=== PATIENT | male | born 1965 | race Caucasian/White ===

== ENCOUNTER 2023-09-14 21:25 | Emergency (ER) | payer BC ==
[2023-09-14] MEDS ORDERED: KETOROLAC 30 MG/ML INJ ONE (21:47)
[2023-09-14] MEDS ORDERED: HYDROCODONE/APAP 5/325 MG TAB ONE (21:47)
[2023-09-14] MEDS ORDERED: LIDOCAINE 4% PATCH ONE (21:48)
--- NOTE | 2023-09-14 22:39 | RAD REPORT ---
EXAM DESCRIPTION: RAD - Ribs Left - 09/14/2023 10:29 pm CLINICAL HISTORY: fall COMPARISON: Chest Single View dated 09/14/2023 FINDINGS/IMPRESSION: No displaced left-sided rib fractures identified. No pneumothorax. Nondisplaced rib fractures may not be apparent radiographically until healing begins.
--- NOTE | 2023-09-14 22:39 | RAD REPORT ---
EXAM DESCRIPTION: RAD - Chest Single View - 09/14/2023 10:29 pm CLINICAL HISTORY: L rib injury COMPARISON: No comparisons FINDINGS: Lines: None. Lungs: No evidence of edema or pneumonia. Pleural: No significant pleural effusions or pneumothorax. Cardiac: The heart size is within normal limits. Mediastinum: Within normal limits. Bones: No acute fractures. Other: None IMPRESSION: No acute cardiopulmonary disease.
--- NOTE | 2023-09-14 22:57 | EDPHYS ---
Physician Documentation [facility] Name: Thony Mir Age: 58 yrs Sex: Male : 1965 Arrival Date: 09/14/2023 Time: 21:25 Bed DX3 Private MD: ED Physician iWlliam Cat HPI: 09/13 21:43 This 58 yrs old Male presents to ER via Ambulatory with complaints of Fall ec2 Injury. 21:43 Patient arrives today for evaluation after falling. Patient reportedly was walking on a ec2 wet surface and subsequently fell and injured his left ribs. Patient reports injury happened approximately 4 hours ago. No LOC, no head strike, no head or neck pain. Patient is on blood thinners. Patient complaining of pain with movement and deep inspiration.. Historical: - Allergies: 21:41 No Known Allergies; as6 - PMHx: 21:41 Hypercholesterolemia; as6 - PSHx: 21:41 None; as6 - Immunization history:: Adult Immunizations up to date. - Infectious Disease History:: Denies. - Social history:: Smoking status: Patient reports the use of cigarette tobacco products, smokes one-half pack cigarettes per day. ROS: 21:43 Constitutional: as per hpi ec2 Exam: 21:43 Constitutional: GEN: NAD Head: atraumatic Eyes: EOMI Ears: External ears are ec2 normal. CV: regular rate LUNGS: no respiratory distress ABD: non-distended SKIN: no evidence of rashes MSK: no evidence of trauma, left lateral rib TTP, no deformities or crepitus, no significant ecchymosis appreciated. NEURO: moves all extremities equally Vital Signs: 21:39 BP 127 / 77; Pulse 87; Resp 18; Temp 98.4; Pulse Ox 100% ; Weight 92.99 kg; Height 5 as6 ft. 10 in. ; Pain 8/10; 23:24 BP 119 / 74; Pulse 82; Resp 16; Pulse Ox 97% ; as6 21:39 Body Mass Index 29.41 (92.99 kg, 177.8 cm) as6 21:39 Pain Scale: Adult as6 MDM: 21:28 Patient medically screened. ec2 21:43 Data reviewed: vital signs. ED course: Patient arrives today for evaluation after left ec2 rib injury. Examination remarkable for right findings as above. Will obtain chest x-ray as well as rib series, will give the patient [place] as well as Toradol and a Lidoderm patch. Differential diagnosis includes processes such as bony contusion, rib fracture, pneumothorax. . 09/13 21:43 Order name: CXR XRAY; Complete Time: 22:52 ec2 09/13 21:43 Order name: Ribs Left XRAY; Complete Time: 22:52 ec2 Administered Medications: 21:52 Drug: HYDROcodone-acetaminophen PO 5 mg-325 mg 2 tabs PO once Route: PO; as6 23:24 Follow up: Response: No adverse reaction as6 21:52 Drug: Ketorolac IM 30 mg IM once Route: IM; Site: right deltoid; as6 23:24 Follow up: Response: No adverse reaction as6 21:52 Drug: Lidoderm Topical Patch 5 % (700 mg/patch) 1 patches Topical once; leave on for 12 as6 hours; cover most painful area; may cut into smaller pieces Route: Topical; Site: affected area; 23:24 Follow up: Response: No adverse reaction as6 23:23 Drug: oxyCODONE PO 10 mg PO once Route: PO; as6 23:24 Follow up: Response: No adverse reaction as6 Disposition Summary: 09/14/23 22:57 Discharge Ordered Notes: Location: Home ec2 Condition: Stable ec2 Diagnosis - Sprain of ribs ec2 Followup: ec2 - With: Private Physician - When: - Reason: Re-evaluation by your physician Discharge Instructions: - Discharge Summary Sheet ec2 - Rib Contusion ec2 Forms: - Medication Reconciliation Form ec2 - Antibiotic Education ec2 - Prescription Opioid Use ec2 - Patient Portal Instructions ec2 - Leadership Thank You Letter ec2 Prescriptions: - acetaminophen-codeine 300-15 mg Oral tablet - take 2 tablet ORAL route every 4 hours as needed for pain; 20 tablet; Refills: ec2 0, Product Selection Permitted Signatures: Dispatcher [employer] Deandre Montes RN RN as6 William Cat MD MD ec2 Corrections: (The following items were deleted from the chart) 21:43 21:43 Ribs Left+RAD.RAD.BRZ ordered. EDMS SHARI
--- NOTE | 2023-09-14 22:57 | ER ---
Nurse's Notes [facility] Name: Thony Mir Age: 58 yrs Sex: Male : 1965 Arrival Date: 09/14/2023 Time: 21:25 Bed DX3 Private MD: Diagnosis: Sprain of ribs Presentation: 09/13 21:39 Chief complaint: Patient states: pt was washing his boat and slipped and fell. pt c/o as6 pain to his left rib cage. Coronavirus screen: At this time, the client does not indicate any symptoms associated with coronavirus-19. Ebola Screen: No symptoms or risks identified at this time. Initial Sepsis Screen: Does the patient meet any 2 criteria? No. Patient's initial sepsis screen is negative. Does the patient have a suspected source of infection? No. Patient's initial sepsis screen is negative. Risk Assessment: Do you want to hurt yourself or someone else? Patient reports no desire to harm self or others. Onset of symptoms was September 14, 2023. 21:39 Acuity: NURY 4 as6 21:39 Method Of Arrival: Ambulatory as6 Triage Assessment: 21:40 General: Appears uncomfortable, Behavior is cooperative, restless. Pain: Complains of as6 pain in left lateral anterior chest and left lateral posterior chest. EENT: No deficits noted. No signs and/or symptoms were reported regarding the EENT system. Neuro: Level of Consciousness is awake, alert, obeys commands, Oriented to person, place, time, situation. Cardiovascular: Capillary refill < 3 seconds Patient's skin is warm and dry. Respiratory: Respiratory effort is even, unlabored, Respiratory pattern is regular, symmetrical. GI: No deficits noted. No signs and/or symptoms were reported involving the gastrointestinal system. : No deficits noted. No signs and/or symptoms were reported regarding the genitourinary system. Derm: Skin is intact, is healthy with good turgor. Musculoskeletal: Reports pain in left lateral anterior chest and left lateral posterior chest. Historical: - Allergies: 21:41 No Known Allergies; as6 - PMHx: 21:41 Hypercholesterolemia; as6 - PSHx: 21:41 None; as6 - Immunization history:: Adult Immunizations up to date. - Infectious Disease History:: Denies. - Social history:: Smoking status: Patient reports the use of cigarette tobacco products, smokes one-half pack cigarettes per day. Screenin:35 [facility] ED Fall Risk Assessment (Adult) History of falling in the last 3 months, as6 including since admission Yes- single mechanical fall (1 pt) Confusion or Disorientation No (0 pts) Intoxicated or Sedated No (0 pts) Impaired Gait No (0 pts) Mobility Assist Device Used No (0 pt) Altered Elimination No (0 pt) Score/Fall Risk Level 0 - 2 = Low Risk Oriented to surroundings, Maintained a safe environment, Educated pt \T\ family on fall prevention, incl call for assistance when getting out of bed, Assessed \T\ reinforced patient's understanding of fall precautions. Abuse screen: Denies threats or abuse. Denies injuries from another. Nutritional screening: No deficits noted. Tuberculosis screening: No symptoms or risk factors identified. Assessment: 22:00 Reassessment: Patient appears in no apparent distress at this time. Patient and/or kb3 family updated on plan of care and expected duration. Pain level reassessed. 22:00 General: Appears in no apparent distress. Behavior is calm, cooperative. Pain: Denies kb3 pain. 23:25 Reassessment: Patient appears in no apparent distress at this time. Patient and/or as6 family updated on plan of care and expected duration. Pain level reassessed. Patient is alert, oriented x 3, equal unlabored respirations, skin warm/dry/pink. Patient states feeling better. Vital Signs: 21:39 BP 127 / 77; Pulse 87; Resp 18; Temp 98.4; Pulse Ox 100% ; Weight 92.99 kg; Height 5 as6 ft. 10 in. ; Pain 8/10; 23:24 BP 119 / 74; Pulse 82; Resp 16; Pulse Ox 97% ; as6 21:39 Body Mass Index 29.41 (92.99 kg, 177.8 cm) as6 21:39 Pain Scale: Adult as6 ED Course: 21:26 Patient arrived in ED. im 21:27 William Cat MD is Attending Physician. ec2 21:39 Arm band placed on. as6 21:40 Triage completed. as6 22:30 CXR XRAY In Process Unspecified. EDMS 22:30 Ribs Left XRAY In Process Unspecified. EDMS 22:36 Bed in low position. Call light in reach. as6 22:53 No provider procedures requiring assistance completed. Patient did not have IV access kb3 during this emergency room visit. 23:24 Provided Education on: follow up. as6 Administered Medications: 21:52 Drug: HYDROcodone-acetaminophen PO 5 mg-325 mg 2 tabs PO once Route: PO; as6 23:24 Follow up: Response: No adverse reaction as6 21:52 Drug: Ketorolac IM 30 mg IM once Route: IM; Site: right deltoid; as6 23:24 Follow up: Response: No adverse reaction as6 21:52 Drug: Lidoderm Topical Patch 5 % (700 mg/patch) 1 patches Topical once; leave on for 12 as6 hours; cover most painful area; may cut into smaller pieces Route: Topical; Site: affected area; 23:24 Follow up: Response: No adverse reaction as6 23:23 Drug: oxyCODONE PO 10 mg PO once Route: PO; as6 23:24 Follow up: Response: No adverse reaction as6 Medication: 22:36 VIS not applicable for this client. as6 Outcome: 22:57 Discharge ordered by . ec2 23:24 Discharged to home ambulatory, with family, as6 23:24 Condition: stable 23:24 Discharge instructions given to patient, family, Instructed on discharge instructions, follow up and referral plans. medication usage, Demonstrated understanding of instructions, follow-up care, medications, Prescriptions given X 1, 23:25 Patient left the ED. as6 Signatures: Dispatcher [employer] Deandre Montes RN RN as6 Dora Pate RN RN kb3 Violetta Hardy Edwin, MD MD ec2
[2023-09-14] MEDS ORDERED: OXYCODONE *CR* 10 MG TAB PO ONE (23:19)
[2023-09-14 23:41] VITALS: BP 119/74; TEMP 98.4; O2SAT 97
== END 2023-09-14 23:25 | disposition home or self-care (01) ==
LOC: ER 21:25
DX: S23.41XA Sprain of ribs, initial encounter (principal); F17.210 Nicotine dependence, cigarettes, uncomplicated
CPT/HCPCS: 71045; 71100; 96372; 99284; J2001